=== PATIENT | male | born 1980 | race Caucasian/White ===

== ENCOUNTER 2016-10-10 16:50 | Emergency (ER) | payer MEDICAID ==
[~2016-10-10] VITALS: Ht 170.2 cm; Wt 74.8 kg
[~2016-10-10 16:50] MED LIST: FISH OIL300 M1 PO; IBUPROFEN600 MG ORAL; OMEPRAZOLE20 M2 ORAL; TRAMADOL HCL50 MG ORAL
[2016-10-10 17:09] VITALS: BP 137/119
[2016-10-10] MEDS ORDERED: UNOBMED (17:09)
[2016-10-10] MEDS ORDERED: Morphine Sulfate 2mg/ml Inj SUBQ STA (17:22)
[2016-10-10] MEDS ORDERED: Morphine Sulfate 4mg/ml Inj IM ONE ×2 (17:30→18:00)
--- NOTE | 2016-10-10 17:43 | Emergency Room Report ---
History of Present Illness General Chief Complaint: Chest Pain Source: Patient Present Illness HPI [id number] presents with chest pain for "1 year and 2 months." Pain is left-sided, non-radiating, worse with movement. Denies assoc SOB, fever/chills, cough. Contrary to vp security note, patient denies abd pain, nausea/vomiting. Denies urinary complaints. Pain not changed with sitting up or lying down. Denies recent URI symptoms. Denies history of DVT/PE, drug use, ETOH. Per EMR was here ~1 year ago for same. Thought to be atypical chest pain. Evaluation was unremarkable, patient discharged. Allergies: Coded Allergies: No Known Allergies (Unverified , 10/10/16) Patient History Past Medical History: none Past Surgical History: none Pertinent Family History: none Social History: Denies: alcohol use, drug use, smoking Immunizations: UTD Reviewed Nursing Documentation: PMH: Agreed, PSxH: Agreed Nursing Documentation-PMH Past Medical History: No History, Except For Review of Systems All Other Systems: negative except mentioned in HPI Physical Exam Vital Signs Date Time Temp Pulse Resp B/P Pulse Ox O2 Delivery O2 Flow Rate FiO2 10/10/16 17:02 98.1 76 23 137/119 100 Room Air Sp02 EP Interpretation: reviewed, normal General Appearance: normal inspection, well appearing, no apparent distress, alert, GCS 15, non-toxic, other - Patient writhing on stretcher Head: normocephalic, atraumatic Eyes: bilateral eye EOMI, bilateral eye PERRL ENT: normal ENT inspection, hearing grossly normal, normal voice Neck: normal inspection, full range of motion, supple, no bony tend, other - Left chest wall very tender to palpation, tender Respiratory: normal inspection, lungs clear, normal breath sounds, no respiratory distress, no retraction, no wheezing Cardiovascular #1: regular rate, rhythm, no edema Medical Decision Making Diagnostic Impression: Primary Impression: Chest pain Qualified Codes: R07.9 - Chest pain, unspecified ER Course Unlikely ACS given reproducibility, worse with movement, duration for ~14months. ECG remains NSR without ischemia, arrhythmia No CAD risk factors to warrant additional lab testing Unlikely PE given no hypoxia, not tachynic. No calf pain/ttp. No risk factors for DVT/PE IM morphine given in ED with improvement DC home with PMD followup EKG Diagnostic Results Rate: normal Rhythm: NSR ST Segments: other Rhythm Strip Diag. Results EP Interpretation: yes Rate: 74 Rhythm: NSR, no PVC's, no ectopy Last Vital Signs Date Time Temp Pulse Resp B/P Pulse Ox O2 Delivery O2 Flow Rate FiO2 10/10/16 17:09 98.1 23 137/119 100 Room Air 10/10/16 17:09 76 Status: improved Disposition: HOME, SELF-CARE Scripts Ibuprofen* (MOTRIN*) 600 Mg Tablet 600 MG ORAL THREE TIMES A DAY Y for chest pain, #30 TAB 0 Refills Prov: REGAN LYNN M.D. 10/10/16 Methocarbamol* (ROBAXIN-750*) 750 Mg Tablet 750 MG PO TID for chest pain, #30 TAB 0 Refills Prov: REGAN LYNN M.D. 10/10/16 Referrals: NOT CHOSEN RODRIGUEZ/,REFERRING (PCP) REGAN LYNN M.D. Oct 10, 2016 17:42
[2016-10-10] MEDS ORDERED: ROBAXIN-750750 MG PO (17:47)
[2016-10-10] MEDS ORDERED: IBUPROFEN600 MG ORAL (17:47)
[2016-10-10 18:04] VITALS: BP 85/72
[2016-10-10 18:05] VITALS: BP 85/72
--- NOTE | 2016-10-15 16:18 | Cardiology Report ---
APPROVED REPORT EKG Measurement Heart [id number] Normal sinus rhythm Normal ECG
== END 2016-10-10 18:41 | disposition home or self-care (01) ==
LOC: EMR 17:10
DX: R07.89 Other chest pain (principal)
CPT/HCPCS: 93005; 96372; 99284; J2270